=== PATIENT | male | born 1960 | race Caucasian/White ===

== ENCOUNTER 2022-08-21 12:01 | Emergency (ER) | payer SELFPAY ==
[2022-08-21] MEDS ORDERED: Dexamethasone 4 MG TAB ONE ×2 (13:02)
== END 2022-08-21 13:09 | disposition home or self-care (01) ==
LOC: BURERS 12:01
DX: J02.9 Acute pharyngitis, unspecified (principal); E11.9 Type 2 diabetes mellitus without complications; I10 Essential (primary) hypertension; F17.210 Nicotine dependence, cigarettes, uncomplicated; Z79.899 Other long term (current) drug therapy; Z79.84 Long term (current) use of oral hypoglycemic drugs
CPT/HCPCS: 87081; 87430; 87804; 99283; J8540